=== PATIENT | male | born 1960 | race African-American/Black ===

== ENCOUNTER 2024-10-03 17:25 | Emergency (ER) | payer OTHER ==
[~2024-10-03] VITALS: Ht 188 cm; Wt 143.0 kg
[2024-10-03 17:30] VITALS: O2SAT 100
[2024-10-03] MEDS: KETOROLAC 30MG/ML VIAL IM ONE (18:30)
[2024-10-03] MEDS: HYDROCODONE/ACETAMINOPHEN 10/325MG TABLET PO ONE (18:30)
[2024-10-03] MEDS: CYCLOBENZAPRINE 10MG TABLET PO ONE (18:30)
[2024-10-03 19:04] VITALS: BP 146/67; PULSE 94; RESP 16; TEMP 36.8; O2SAT 100
== END 2024-10-03 19:05 | disposition home or self-care (01) ==
LOC: ER 17:31
DX: G89.29 Other chronic pain (principal); M79.604 Pain in right leg; M54.31 Sciatica, right side; E11.9 Type 2 diabetes mellitus without complications; I10 Essential (primary) hypertension; Z79.899 Other long term (current) drug therapy
CPT/HCPCS: 99283; 96372; J1885